=== PATIENT | female | born 1970 | race Caucasian/White ===

== ENCOUNTER 2019-02-16 19:15 | Inpatient (IN) | payer MEDICAID, OTHER ==
[~2019-02-16] VITALS: Ht 309.9 cm; Wt 53.3 kg
[2019-02-16] MEDS ORDERED: SODIUM CHLORIDE 0.9% 1000ML BAG (SEPSIS BOLUS) IV ONE (23:15)
[2019-02-16] MEDS ORDERED: ONDANSETRON HCL 4MG/2ML INJ IV STA (23:34)
[2019-02-16] MEDS ORDERED: MORPHINE SULFATE 4 MG/ML CPJ (NOT FOR IM USE) IV STA (23:34)
[2019-02-17 00:30] LABS: BASOPHILS % 0.2 % (0.0-2.0); EOSINOPHILS % 0.1 % (0.0-5.0); HEMATOCRIT. 44.1 % (36.0-48.0); HEMOGLOBIN. 15.1 g/dL (12.0-16.0); LYMPHOCYTES % 7.3 % (20.0-50.0); MEAN CORPUSCULAR HEMOGLOBIN 31.6 pg (28.0-32.0); MEAN CORPUSCULAR VOLUME 92.4 fL (81.0-99.0); MEAN PLATELET VOLUME 8.4 fl (7.4-10.4); MONOCYTES % 6.7 % (2.0-8.0); NEUTROPHILS % 85.7 % (40.0-76.0); PLATELET 230 x1000/uL (130-400); RED BLOOD CELL COUNT 4.77 mill/uL (4.2-5.4); RED CELL DISTRIBUTION WIDTH 13.3 % (11.6-14.6)
[2019-02-17 00:37] LABS: CHLORIDE 99 mEq/L (98-107)
[2019-02-17 00:40] LABS: HCG SCREEN NEGATIVE
[2019-02-17 00:46] LABS: INR 1.1; PARTIAL THROMBOPLASTIN TIME 36.4 sec (23.4-31.0); PROTHROMBIN TIME 11.2 sec (9.6-11.0)
[2019-02-17] MEDS ORDERED: IOHEXOL-350 100 ML BOTTLE ONE (03:19)
[2019-02-17 04:23] LABS: CLARITY URINE CLEAR (CLEAR); COLOR URINE YELLOW (YELLOW); KETONES URINE 1+ (NEGATIVE); LEUKOCYTE ESTERASE URINE 1+ (NEGATIVE); NITRITE URINE POSITIVE (NEGATIVE); OCCULT BLOOD URINE 1+ (NEGATIVE); PH URINE 6.5 (4.5-8.0); PROTEIN URINE 1+ (NEGATIVE); SPECIFIC GRAVITY URINE 1.079 (1.005-1.030)
[2019-02-17 04:30] LABS: *BARBITURATES SCREEN URINE NEGATIVE (NEGATIVE)
[2019-02-17 04:31] LABS: *BENZODIAZEPINES SCREEN URINE NEGATIVE (NEGATIVE); *COCAINE SCREEN URINE NEGATIVE (NEGATIVE); METHADONE URINE SCREEN NEGATIVE (NEGATIVE); PHENCYCLIDINE URINE SCREEN NEGATIVE (NEGATIVE)
[2019-02-17 04:36] LABS: *AMPHETAMINES SCREEN URINE PRESUMTIVE POSITIVE (NEGATIVE); CANNABINOID URINE SCREEN PRESUMTIVE POSITIVE (NEGATIVE); OPIATES URINE SCREEN PRESUMTIVE POSITIVE (NEGATIVE)
[2019-02-17] MEDS ORDERED: KETOROLAC 30MG/ML VIAL IV SCH (04:45)
[2019-02-17] MEDS ORDERED: MORPHINE SULFATE 4 MG/ML CPJ (NOT FOR IM USE) IV SCH (04:45)
[2019-02-17 09:00] VITALS: BP 121/58
[2019-02-17 09:20] VITALS: BP 121/58
[2019-02-17] MEDS ORDERED: CLONIDINE 0.1MG TABLET PO PRN (10:45)
[2019-02-17] MEDS ORDERED: HYDROCODONE/ACETAMINOPHEN 5/325MG TABLET PO PRN (10:45)
[2019-02-17] MEDS ORDERED: LEVOFLOXACIN 500MG PREMIX 100 ML IV SCH (11:00)
[2019-02-17] MEDS: ACETAMINOPHEN 325MG TABLET PO PRN ×2 (11:00→22:20)
[2019-02-17] MEDS ORDERED: ENOXAPARIN 40MG/0.4ML SYR SUBCUT SCH (11:15)
[2019-02-17 12:29] VITALS: BP 105/56
[2019-02-17 12:38] VITALS: BP 105/56
[2019-02-17] MEDS: SODIUM CHLORIDE 0.45% 1,000 ML IV SCH ×2 (14:42→23:59)
[2019-02-17 16:54] VITALS: BP 125/70
[2019-02-17 20:28] VITALS: BP 96/57
[2019-02-18 00:39] VITALS: BP 103/56
[2019-02-18 04:00] VITALS: BP 110/60
[2019-02-18 07:38] LABS: CHLORIDE 108 mEq/L (98-107)
[2019-02-18 07:51] LABS: BASOPHILS % 0.2 % (0.0-2.0); EOSINOPHILS % 1.3 % (0.0-5.0); HEMATOCRIT. 34.6 % (36.0-48.0); HEMOGLOBIN. 11.7 g/dL (12.0-16.0); LYMPHOCYTES % 13.2 % (20.0-50.0); MEAN CORPUSCULAR HEMOGLOBIN 31.5 pg (28.0-32.0); MEAN CORPUSCULAR VOLUME 93.2 fL (81.0-99.0); MEAN PLATELET VOLUME 8.7 fl (7.4-10.4); MONOCYTES % 9.8 % (2.0-8.0); NEUTROPHILS % 75.5 % (40.0-76.0); PLATELET 181 x1000/uL (130-400); RED BLOOD CELL COUNT 3.71 mill/uL (4.2-5.4); RED CELL DISTRIBUTION WIDTH 13.2 % (11.6-14.6)
[2019-02-18 08:00] VITALS: BP 107/65
[2019-02-18 09:45] VITALS: BP 107/65
[2019-02-18] MEDS: ACETAMINOPHEN 325MG TABLET PO PRN (10:00)
[2019-02-18 10:16] VITALS: BP 107/65
== END 2019-02-18 12:37 | disposition home or self-care (01) | DRG 720 ==
LOC: ER 19:15 → 6WST 02-17 04:36 → ENRESERV 02-17 08:12
PROVIDERS: ADMIT Internal Medicine; ATTEND Internal Medicine
DX: A41.9 Sepsis, unspecified organism (principal); N12 Tubulo-interstitial nephritis, not specified as acute or chronic; E86.0 Dehydration; F17.200 Nicotine dependence, unspecified, uncomplicated
CPT/HCPCS: 36415; 71045; 71275; 74174; 80048; 80305; 81003; 83605; 83880; 84145; 84484; 84703; 87077; 87186; 93005; 96374; 99285; J1650; J1885; J1956; J2270; J2405; J7030; Q9967